=== PATIENT | female | born 1995 | race Caucasian/White ===

== ENCOUNTER 2020-03-14 20:52 | Emergency (ER) | payer BC, OTHER ==
[~2020-03-14] VITALS: Ht 175.3 cm; Wt 72.6 kg
--- NOTE | 2020-03-14 21:18 | NUR ---
CALLED PT IN WAITING ROOM. PER ADMITTING PT IN CAR.
--- NOTE | 2020-03-14 21:22 | NUR ---
CALLED PT IN [facility]. NO ONE RESPONDED.
--- NOTE | 2020-03-14 21:55 | NUR ---
CALLED IN PT [facility] X3. NO ONE RESPONDED.
[2020-03-14 23:14] VITALS: BP 119/70
--- NOTE | 2020-03-15 01:28 | NUR ---
COVID SWAB COLLECTED AND SENT TO THE LAB
--- NOTE | 2020-03-15 05:04 | NUR ---
PATIENT CALLED. WILL BE HERE IN AN HOUR.
== END 2020-03-15 05:05 | disposition left against medical advice (07) ==
LOC: ER 20:59
DX: Z20.828 Contact with and (suspected) exposure to other viral communicable diseases (principal)
CPT/HCPCS: 80307; 87426; C9803